=== PATIENT | female | born 1935 | race Two or more races ===

== ENCOUNTER 2022-04-07 11:19 | Inpatient (IN) | payer MEDICARE, BC ==
[2022-04-07] MEDS ORDERED: SODIUM CHLORIDE 0.9% 1,000 ML IV ONE (11:33)
[2022-04-07] MEDS ORDERED: MORPHINE SULFATE 4 MG/ML SYRINGE IV STA (11:33)
--- NOTE | 2022-04-07 11:38 | ED ---
Fall HPI - General Chief Complaint: Fall Stated Complaint: FALL Time Seen by Provider: 04/07/22 11:25 Source: patient, EMS Mode of arrival: EMS Limitations: physical limitation (Inability to ambulate) - History of Present Illness Initial Comments: 86-year-old cachectic female alert and oriented 4 presents to the emergency room with complaints of left hip pain and inability to ambulate. Patient states that she fell out of a chair onto her left side on Thursday last week and has been unable to bear weight. She has been scooting around on her butt and has 2 wounds that she just prior to arrival. Patient did not have any symptoms prior to the fall she believes she just tripped. She did not hit her head. 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 (6) Fall Witnessed: no Place Fall Occurred: home Loss of Consciousness: none Symptoms Prior to Fall: none Location: other (Left hip) Severity scale (1-10): 5 Quality: sharp Associated Symptoms: other (pressure ulcers bilateral buttocks) - Related Data Home Medications Medication Instructions Recorded Confirmed Aspirin EC [Ecotrin Low Dose] 81 mg PO DAILY 04/07/22 04/07/22 Calcium Citrate/Vitamin D3 2 tab PO BID 04/07/22 04/07/22 [Citracal + D Maximum Caplet] Magnesium 250 mg PO BID 04/07/22 04/07/22 Vit C/E/Zn/Coppr/Lutein/Zeaxan 1 cap PO BID 04/07/22 04/07/22 [Preservision Areds 2 Softgel] Vitamin B Complex 1 cap PO DAILY 04/07/22 04/07/22 Allergies Allergy/AdvReac Type Severity Reaction Status Date / Time No Known Allergies Allergy Verified 04/07/22 12:59 Review of Systems ROS Statement: Those systems with pertinent positive or pertinent negative responses have been documented in the HPI. ROS Other: All systems not noted in ROS Statement are negative. Past Medical History Past Medical History: Cancer Additional Past Medical History / Comment(s): skin cancer resolved History of Any Multi-Drug Resistant Organisms: None Reported Past Surgical History: No Surgical Hx Reported Past Psychological History: No Psychological Hx Reported Smoking Status: Never smoker Past Alcohol Use History: None Reported Past Drug Use History: None Reported General Exam Limitations: physical limitation General appearance: alert, in no apparent distress Head exam: Present: atraumatic Eye exam: Absent: scleral icterus, conjunctival injection, periorbital swelling Neck exam: Present: full ROM. Absent: tenderness, meningismus Respiratory exam: Absent: respiratory distress, accessory muscle use Cardiovascular Exam: Present: regular rate GI/Abdominal exam: Present: soft. Absent: distended, tenderness, guarding, r ebound, rigid Extremities exam: Present: normal capillary refill Left Hip exam: Present: tenderness, swelling (Anterior pelvis), ecchymosis Upper Leg exam: Present: tenderness, ecchymosis (Inner thigh) Knee exam: Absent: tenderness, swelling Lower Leg exam: Absent: tenderness, swelling Ankle exam: Absent: tenderness, swelling Foot/Toe exam: Absent: tenderness, swelling Neurovascular tendon exam: Present: no vascular compromise. Absent: abnormal cap refill, extremity cold to touch, pallor, foot drop Neurological exam: Present: alert, oriented X3 Psychiatric exam: Present: normal affect, normal mood Skin exam: Present: warm, dry, other (Stage II Pressure ulcers to bilateral buttocks). Absent: cyanosis, diaphoretic Course Vital Signs 04/07/22 04/07/22 04/07/22 11:23 12:59 14:12 Temperature 98.5 F Pulse Rate 98 87 85 Respiratory 18 18 18 Rate Blood Pressure 171/93 203/88 139/74 O2 Sat by Pulse 99 98 97 Oximetry Medical Decision Making - Medical Decision Making Patient fell out of a chair last week Thursday onto her left hip. States been having difficulty ambulating or bearing weight. Has been scooting around on her buttocks at home. She has sustained two friction versus pressure ulcers on her buttocks. Hemoglobin and hematocrit are stable. No evidence of leukocytosis. Elec trolytes show mild dehydration, patient was given IV fluids. X-ray shows a comminuted displaced intertrochanteric fracture left hip Patient will be admitted to orthopedics. Only daily meds are vitamins and a baby aspirin. No previous medical history. No previous fractures. Blood pressure is elevated was given hydralazine in the emergency room. Case discussed with Dr. Rosado - Lab Data Result diagrams: 04/07/22 11:49 04/07/22 11:49 Lab Results 04/07/22 04/07/22 04/07/22 Range/Units 11:49 11:49 11:49 WBC 7.1 (3.8-10.6) k/uL RBC 3.40 L (3.80-5.40) m/uL Hgb 11.6 (11.4-16.0) gm/dL Hct 33.6 L (34.0-46.0) % MCV 98.8 (80.0-100.0) fL MCH 34.1 (25.0-35.0) pg MCHC 34.5 (31.0-37.0) g/dL RDW 13.3 (11.5-15.5) % Plt Count 219 (150-450) k/uL MPV 9.0 Neutrophils % 79 % Lymphocytes % 12 % Monocytes % 7 % Eosinophils % 0 % Basophils % 0 % Neutrophils # 5.6 (1.3-7.7) k/uL Lymphocytes # 0.9 L (1.0-4.8) k/uL Monocytes # 0.5 (0-1.0) k/uL Eosinophils # 0.0 (0-0.7) k/uL Basophils # 0.0 (0-0.2) k/uL PT 10.0 (9.0-12.0) sec INR 0.9 (<1.2) APTT 22.5 (22.0-30.0) sec Sodium 143 (137-145) mmol/L Potassium 3.9 (3.5-5.1) mmol/L Chloride 104 (98-107) mmol/L Carbon Dioxide 31 H (22-30) mmol/L Anion Gap 8 mmol/L BUN 56 H (7-17) mg/dL Creatinine 0.79 (0.52-1.04) mg/dL Est GFR (CKD-EPI)AfAm 78 (>60 ml/min/1.73 sqM) Est GFR (CKD-EPI)NonAf 68 (>60 ml/min/1.73 sqM) Glucose 120 H (74-99) mg/dL Calcium 9.2 (8.4-10.2) mg/dL Disposition Clinical Impression: Fall, Fracture of left hip, Inability to ambulate due to left hip, Pressure ulcer of left buttock, stage 2 Disposition: ADMITTED IP TO THIS [facility] Decision Date: 04/07/22 Decision Time: 12:20
[2022-04-07 12:00] LABS: Basophils % (A) 0 %; Eosinophils % (A) 0 %; HCT 33.6 % (34.0-46.0); HGB 11.6 gm/dL (11.4-16.0); Lymphocytes # (A) 0.9 k/uL (1.0-4.8); Lymphocytes % (A) 12 %; MCH 34.1 pg (25.0-35.0); MCHC 34.5 g/dL (31.0-37.0); MCV 98.8 fL (80.0-100.0); Monocytes # (A) 0.5 k/uL (0-1.0); Monocytes % (A) 7 %; Neutrophils # (A) 5.6 k/uL (1.3-7.7); Neutrophils % (A) 79 %; Platelet Count 219 k/uL (150-450); RDW 13.3 % (11.5-15.5); WBC 7.1 k/uL (3.8-10.6)
--- NOTE | 2022-04-07 12:14 | XR ---
EXAMINATION TYPE: XR Hip LT and AP Pelvis DATE OF EXAM: 04/07/2022 COMPARISON: NONE HISTORY: Pain TECHNIQUE: A single AP view of the pelvis is obtained. Two views of the left hip are obtained. FINDINGS: There is comminuted intertrochanteric displaced fracture of the left femoral neck. Diffuse osteopenia. Arthropathy of the right hip. Degenerative changes lower lumbar spine. Remaining osseous structures intact. IMPRESSION: 1. Comminuted displaced intertrochanteric fracture left hip.
[2022-04-07 12:18] LABS: Calcium 9.2 mg/dL (8.4-10.2)
[2022-04-07 12:22] LABS: INR 0.9 (<1.2); Partial Thromboplastin Time 22.5 sec (22.0-30.0)
[2022-04-07 12:26] LABS: Potassium 3.9 mmol/L (3.5-5.1)
[2022-04-07] MEDS ORDERED: SODIUM CHLORIDE 0.9% 500 ML 500 ML IV ONE (12:31)
[2022-04-07] MEDS ORDERED: MORPHINE SULFATE 4 MG/ML SYRINGE IV PRN (12:37)
[2022-04-07] MEDS ORDERED: NALOXONE 0.4 MG/ML 1 ML VIAL IV PRN (12:37)
[2022-04-07] MEDS ORDERED: ACETAMINOPHEN TAB 325 MG TAB PO PRN (12:37)
[2022-04-07] MEDS ORDERED: hydrALAZINE HCL 20 MG/ML 1 ML VIAL IVP STA (13:03)
--- NOTE | 2022-04-07 13:31 | P.CONS ---
History of Present Illness - Reason for Consult Consult date: 04/07/22 left hip fracture - History of Present Illness Patient is a 86-year-old female with no significant past medical history presenting for fall and left hip fracture. Patient being admitted to orthopedics service. [facility] esthela has been consulted for medical management. She claims that she had a mechanical fall last week, and has been noticing significant left hip pain and difficulty ambulating. Lab work is insig nificant. Vital signs within normal limits. Left hip x-ray shows comminuted displaced intertrochanteric fracture of left hip. She denies any chest pain, shortness of breath, abdominal pain, nausea, vomiting, diarrhea, constipation, urinary complaints. Patient seen and examined at bedside. Pertinent positives and negatives as discussed in HPI, a complete review of systems was performed and all other systems are negative. Vital signs reviewed General: nontoxic, no distress, appears at stated age Derm: warm, dry Head: atraumatic, normocephalic, symmetric Eyes: EOMI, no lid lag, anicteric sclera, pupils equal round reactive to light ENT: Nose and ears atraumatic Neck: No thyromegaly Mouth: no lip lesion, mucus membranes moist Cardiovascular: S1S2 reg, no murmur, no edema Lungs: clear to auscultation bilateral, no rhonchi, no rales, no wheeze, no accessory muscle use Abdominal: soft, nontender to palpation, no guarding, no appreciable organomegaly, normal bowel sounds Ext: no gross muscle atrophy, muscle strength muscle strength 5 out of 5 in 3 extremities, left hip pain limiting left leg mobility Neuro: CN II-XII grossly intact Psych: Alert, oriented, appropriate affect Assessment/Plan: Left femoral intertrochanteric fracture -Management per Orthopedic surgery -DVT prophylaxis and pain control Perioperative evaluation -RCRI score of 0 points - 3.9% 30 day prescription , [place], or cardiac arrest -NPO at midnight -Medications reviewed and reconciled -Patient medically optimized for surgery tomorrow Thank you for allowing us to participate in the care of this pleasant patient. Do not hesitate to contact us with questions. Someone can be reached from the [facility] hospitalist group all hours of the day at [phone] or via [employer]. Past Medical History Past Medical History: Cancer Additional Past Medical History / Comment(s): skin cancer resolved History of Any Multi-Drug Resistant Organisms: None Reported Past Surgical History: No Surgical Hx Reported Past Psychological History: No Psychological Hx Reported Smoking Status: Never smoker Past Alcohol Use History: None Reported Past Drug Use History: None Reported Medications and Allergies Home Medications Medication Instructions Recorded Confirmed Type Aspirin EC [Ecotrin Low Dose] 81 mg PO DAILY 04/07/22 04/07/22 History Calcium Citrate/Vitamin D3 2 tab PO BID 04/07/22 04/07/22 History [Citracal + D Maximum Caplet] Magnesium 250 mg PO BID 04/07/22 04/07/22 History Vit C/E/Zn/Coppr/Lutein/Zeaxan 1 cap PO BID 04/07/22 04/07/22 History [Preservision Areds 2 Softgel] Vitamin B Complex 1 cap PO DAILY 04/07/22 04/07/22 History Allergies Allergy/AdvReac Type Severity Reaction Status Date / Time No Known Allergies Allergy Verified 04/07/22 12:59 Physical Exam Vitals: Vital Signs Temp Pulse Resp BP Pulse Ox 04/07/22 11:23 98.5 F 98 18 171/93 99 Intake and Output 04/06/22 04/07/22 04/07/22 22:59 06:59 14:59 Other: Weight 40.823 kg Results CBC & Chem 7: 04/07/22 11:49 04/07/22 11:49 Labs: Abnormal Lab Results - Last 24 Hours (Table) 04/07/22 04/07/22 Range/Units 11:49 11:49 RBC 3.40 L (3.80-5.40) m/uL Hct 33.6 L (34.0-46.0) % Lymphocytes # 0.9 L (1.0-4.8) k/uL Carbon Dioxide 31 H (22-30) mmol/L BUN 56 H (7-17) mg/dL Glucose 120 H (74-99) mg/dL
[2022-04-07] MEDS ORDERED: hydrALAZINE HCL 20 MG/ML 1 ML VIAL IVP PRN (13:32)
--- NOTE | 2022-04-07 17:02 | P.HPOR ---
History of Present Illness H&P Date: 04/07/22 Chief Complaint: Left intertrochanteric femur fracture Patient is an 78-year-old female who was brought to [facility] today for evaluation of left hip pain and difficulty with ambulation. Apparently the patient had a fall out of her chair at home last week. Since the injury, she's been unable to weight-bear on that extremity. She's been crawling around her home and managing her ADLs. Patient does live alone, she has a neighbor that checks on her quite often. Upon arrival to the hospital, imaging and lab tests were done. Images demonstrated a displaced left intertrochanteric femur fracture. Our orthopedic team was contacted with regards to the patient. Patient was evaluated today at bedside in the emergency room, she is resting comfortably. Patient does have a friend at bedside. She states most of the pain in the left lower extremity is with movement. She does have a few sores on her buttock region that have appeared over the last week or so. She denies any pain to the right lower extremity. She denies any pain of the bilateral upper extremity is. She denies any loss of bowel or bladder function. She denies any numbness or tingling to the bilateral upper or lower extremities. 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 History of Any Multi-Drug Resistant Organisms: None Reported Past Surgical History: No Surgical Hx Reported Additional Past Surgical History / Comment(s): R upper lip/nare surgery to remove skin cancer, bilateral cataract removals/lens implants. Past Anesthesia/Blood Transfusion Reactions: No Reported Reaction Smoking Status: Never smoker - Past Family History Father Additional Family Medical History / Comment(s): Heart problems. Mother Family Medical History: Dementia Medications and Allergies Home Medications Medication Instructions Recorded Confirmed Type Aspirin EC [Ecotrin Low Dose] 81 mg PO DAILY 04/07/22 04/07/22 History Calcium Citrate/Vitamin D3 2 tab PO BID 04/07/22 04/07/22 History [Citracal + D Maximum Caplet] Magnesium 250 mg PO BID 04/07/22 04/07/22 History Vit C/E/Zn/Coppr/Lutein/Zeaxan 1 cap PO BID 04/07/22 04/07/22 History [Preservision Areds 2 Softgel] Vitamin B Complex 1 cap PO DAILY 04/07/22 04/07/22 History Allergies Allergy/AdvReac Type Severity Reaction Status Date / Time No Known Allergies Allergy Verified 04/07/22 12:59 Physical Examination Left lower extremity: No open lesions or sores are visualized throughout the extremity. This extremity is shortened and externally rotated compared to the contralateral side Obvious tenderness with palpation of the proximal femur, she is nontender with palpation to the knee, lower leg, foot or ankle Logroll maneuver does reproduce discomfort in the extremity, extension and flexion are intact at the knee, plantarflexion, dorsiflexion, EHL, FHL are intact Compartments of the leg both anterior and posterior are soft and compressible, calf is soft, no tenderness with palpation Sensory exam to light touch is intact throughout the extremity Dorsalis pedis pulses 2+ Exam of the buttock region does show 2 separate pressure-type sores, small ulcerations are present, no drainage or fluctuance is appreciated. Mild eryt yael surrounds the borders Results - Labs Labs: Abnormal Lab Results - Last 24 Hours (Table) 04/07/22 04/07/22 Range/Units 11:49 11:49 RBC 3.40 L (3.80-5.40) m/uL Hct 33.6 L (34.0-46.0) % Lymphocytes # 0.9 L (1.0-4.8) k/uL Carbon Dioxide 31 H (22-30) mmol/L BUN 56 H (7-17) mg/dL Glucose 120 H (74-99) mg/dL H & H 04/07/22 Range/Units 11:49 Hgb 11.6 (11.4-16.0) gm/dL Hct 33.6 L (34.0-46.0) % Coagulation 04/07/22 Range/Units 11:49 INR 0.9 (<1.2) Result Diagrams: 04/07/22 11:49 04/07/22 11:49 - Diagnostic results Hip x-ray: report reviewed, image reviewed (Images of the left hip and pelvis were obtained today in hospital. Images demonstrated the obvious displaced left intertrochanteric femur fracture. No other acute osseous abnormalities are appreciated) Assessment and Plan Assessment: Displaced left intertrochanteric femur fracture Status post fall from standing Pressure sores, buttock region Other medical comorbidities Plan: I was able to discuss the case, this including both physical exam findings and imaging studies my attending Dr. Garber. Patient will be admitted under orthopedic care, terminal medicine has been consulted for management. I did discuss treatment options with the patient today, this including surgical intervention. We would like to proceed with surgery, intramedullary nail of the left femur on 04/08/2022 or 04/09/2022. Risk and benefits the procedure were discussed the patient today, she is in good understanding and would like to proceed. Regular diet at this time, nothing by mouth after midnight prior to surgery Nonweightbearing left lower extremity Pressure sore dressings discussed with the ER staff, this to include silver opted home GI and DVT prophylaxis, subcu medication will be started after surgery Medical management Pain control, oral and IV medicine as needed PT/OT evaluation after surgery Further recommendations to follow Time with Patient: Less than 30
[2022-04-08] MEDS ORDERED: LIDOCAINE 1% (10MG/ML) FOR IV START INTRADERMA PRN (07:08)
[2022-04-08] MEDS ORDERED: ONDANSETRON 4 MG/2 ML VIAL IVP ONE (07:08)
[2022-04-08] MEDS: LACTATED RINGERS 1,000 ML IV SCH (10:39)
--- NOTE | 2022-04-08 11:37 | P.PN ---
Subjective Progress Note Date: 04/08/22 Principal diagnosis: Left hip fracture Hospital Course: Patient is a 86-year-old female with no significant past medical history presenting for mechanical fall and left hip fracture. Patient being admitted to orthopedics service. [facility] physicians has been consulted for medical management. Subjective: Patient seen and examined at bedside. No acute events overnight. She continues to have significant left hip pain limiting her mobility. She is also complaining of sores on her buttocks from her scooting on the floor at home. Pertinent positives and negatives as discussed above, a complete review of systems was performed and all other systems are negative. Vitals Signs Reviewed. General: nontoxic, no distress, appears at stated age Derm: warm, dry, erythematous patches on bilateral buttocks Head: atraumatic, normocephalic, symmetric Eyes: EOMI, no lid lag, anicteric sclera, pupils equal round reactive to light ENT: Nose and ears atraumatic Neck: No thyromegaly Mouth: no lip lesion, mucus membranes moist Cardiovascular: S1S2 reg, no murmur, no edema Lungs: clear to auscultation bilateral, no rhonchi, no rales, no wheeze, no accessory muscle use Abdominal: soft, nontender to palpation, no guarding, no appreciable organomegaly, normal bowel sounds Ext: no gross muscle atrophy, muscle strength muscle strength 5 out of 5 in 3 extremities, left hip pain limiting left leg mobility Neuro: CN II-XII grossly intact Psych: Alert, oriented, appropriate affect Assessment and Plan: Left femoral intertrochanteric fracture -Management per Orthopedic surgery -DVT prophylaxis and pain control -Surgery pending either today or tomorrow. Hypertension -Not on any chronic home medications -Likely in the setting of pain -Hydralazine as needed Patient is medically optimized for surgery Thank you for allowing us to participate in the care of this pleasant patient. Do not hesitate to contact us with questions. Someone can be reached from the [facility] hospitalist group all hours of the day at [phone] or via [employer]. Objective - Vital Signs Vital signs: Vital Signs Temp 97.6 F 04/08/22 05:00 Pulse 74 04/08/22 05:00 Resp 16 04/08/22 05:00 BP 144/76 04/08/22 05:00 Pulse Ox 97 04/08/22 05:00 FiO2 Intake & Output 04/07/22 04/08/22 04/08/22 18:59 06:59 18:59 Output Total 700 225 Balance -700 -225 Weight 40.823 kg Output: Urine 700 225 Other: Voiding Method Indwelling Catheter Indwelling Catheter - Labs CBC & Chem 7: 04/07/22 11:49 04/07/22 11:49 Labs: Abnormal Lab Results - Last 24 Hours (Table) 04/07/22 04/07/22 Range/Units 11:49 11:49 RBC 3.40 L (3.80-5.40) m/uL Hct 33.6 L (34.0-46.0) % Lymphocytes # 0.9 L (1.0-4.8) k/uL Carbon Dioxide 31 H (22-30) mmol/L BUN 56 H (7-17) mg/dL Glucose 120 H (74-99) mg/dL
[2022-04-08 14:17] VITALS: BMI 16.9
[2022-04-09] MEDS: LACTATED RINGERS 1,000 ML IV SCH ×2 (06:50→07:28)
[2022-04-09] MEDS ORDERED: ONDANSETRON 4 MG/2 ML VIAL ONE (07:09)
[2022-04-09] MEDS ORDERED: DEXAMETHASONE SOD PHOSPHATE 4 MG/ML 1 ML VIAL IVP ONE (07:10)
[2022-04-09] MEDS ORDERED: ONDANSETRON 4 MG/2 ML VIAL IVP ONE (07:10)
[2022-04-09] MEDS ORDERED: fentaNYL (PF) 50 MCG/ML 2 ML AMP ONE (07:20)
[2022-04-09] MEDS ORDERED: PROPOFOL 10 MG/ML 20 ML VIAL IV ONE (07:20)
[2022-04-09] MEDS ORDERED: MIDAZOLAM 2 MG/2 ML VIAL ONE (07:20)
[2022-04-09] MEDS ORDERED: KETAMINE 10 MG/ML 20 ML VIAL ONE (07:20)
[2022-04-09] MEDS ORDERED: PHENYLEPHRINE-0.9% NACL SYG 1,000 MCG/10 ML SYRINGE ONE (07:20)
[2022-04-09] MEDS ORDERED: SODIUM CHLORIDE 0.9% 50 ML with ceFAZolin 1 GM IV ONE ×2 (07:45)
[2022-04-09] MEDS ORDERED: NALOXONE 0.4 MG/ML 1 ML VIAL IV PRN (08:50)
[2022-04-09] MEDS ORDERED: HYDROcodone/APAP 5-325MG 1 EACH TAB PO PRN (08:50)
[2022-04-09] MEDS ORDERED: HYDROmorphone 0.5 MG/0.5 ML SYRINGE IVP PRN ×2 (08:50)
[2022-04-09] MEDS ORDERED: ONDANSETRON 4 MG/2 ML VIAL IVP PRN (08:50)
--- NOTE | 2022-04-09 08:50 | P.OP ---
Date of Procedure: 04/09/22 Preoperative Diagnosis: Displaced left hip intertrochanteric fracture Postoperative Diagnosis: Displaced left hip intertrochanteric fracture Procedure(s) Performed: Trochanteric nailing left hip fracture Implants: Arthrex 9 x 20 130 degree trochanteric nail with a 10.5 x 95 lag screw and a 5/32 mm distal locking screw Anesthesia: spinal Surgeon: Freeman Garber Latin Dance Instructor #1: Adam Vital Estimated Blood Loss (ml): 20 Pathology: none sent Condition: stable Disposition: PACU Indications for Procedure: 86-year-old patient seen with a displaced left hip intertrochanteric fracture. I recommended trochanteric nailing. Patient was agreeable and consent was obtained. Operative Findings: See description of procedure Description of Procedure: Patient was taken to the operative suite. She received preoperative IV antibiotics. She underwent a spinal by the department of anesthesia. She was then transferred to the fracture table. The left lower extremity was placed in standard longitudinal traction with slight internal rotation and adduction. The right lower was placed in a well-padded well-leg mitchell. The C-arm was brought in confirming adequate alignment of this displaced fracture. The C-arm was pulled back. The left hip was prepped and draped in the normal sterile fashion. C-arm was brought back into the operative field. I made an incision measuring approximately 3 cm just proximal to the greater trochanter sharply through skin. I dissected down to the IT band may wash incision through the IT band. I now bluntly dissected to the tip of the trochanter. I introduced a guidewire into the intramedullary canal beginning at the tip of the trochanter. This was confirmed under intraoperative fluoroscopic imaging. We now introduced our opening reamer. We now chose a 1:30 degree Arthrex 9 mm trochanteric nail. That nail was now slid over the guidewire into the intramedullary canal. I tapped that down until was sufficiently placed. We now made an incision along the proximal lateral aspect of the femur for lag screw. We then placed a guidewire into the head neck complex and confirmed adequate positioning under AP and lateral intraoperative fluoroscopic imaging. We then appropriately reamed over the guidewire. I now placed my 95 mm lag screw with good fixation of the femoral head noted. I now locking lag screw in position. The guidewire was removed and we confirmed adequate positioning under fluoroscopic imaging. We now made a small incision distally for distal locking screw. We drilled through the distal locking hole and introduced our appropriate size distal locking screw good fixation noted. The our was removed. The entire construct was reviewed under AP and lateral intraoperative imaging and noted adequate alignment of the fracture and the implants. The C-arm was pulled back. The wound was irrigated with antibiotic irrigant. The proximal incision IT band was repaired with #1 Vicryl. The subcutaneous soft tissues were repaired with 2-0 Vicryl. All the skin incisions were repaired with skin zainab. I applied sterile dressings. The patient was then transferred to a bed and recovery stable condition. Jm BARNES assisted with all aspects of the procedure.
--- NOTE | 2022-04-09 08:55 | XR ---
EXAMINATION TYPE: XR Hip Complete LT DATE OF EXAM: 04/09/2022 COMPARISON: NONE HISTORY: Postop TECHNIQUE: One view submitted. FINDINGS: There is postsurgical change in near anatomic alignment. There is soft tissue edema and emphysema. IMPRESSION: 1. Postoperative change. Appears in near-anatomic alignment.
--- NOTE | 2022-04-09 09:02 | FL ---
EXAMINATION TYPE: FL guidance operating room DATE OF EXAM: 04/09/2022 HISTORY: Fluoroscopy time 1 minute and 22 seconds of fluoroscopy provided. IMPRESSION: 1. Fluoroscopy time.
[2022-04-09] MEDS: ENOXAPARIN 30 MG/0.3 ML SYRINGE SQ SCH (10:43)
[2022-04-09] MEDS: SODIUM CHLORIDE 0.9% 1,000 ML IV SCH (10:44)
--- NOTE | 2022-04-09 12:19 | CDI ---
Documentation Clarification Form Date: 04/09/2022 12:06:20 PM From: Octavia WayneBuckCHELE hicks, CCDS Admit Date: 04/07/2022 12:23:00 PM Patient Name: Zuleyma Alba Visit Number: [id number] Discharge Date: ATTENTION: The Clinical Documentation Specialists (CDI) and [facility] Coding Staff appreciate your assistance in clarifying documentation. Please respond to the clarification below the line at the bottom and electronically sign. The CDI & [facility] Coding staff will review the response and follow-up if needed. Please note: Queries are made part of the Legal Health Record. If you have any questions, please contact the author of this message via ITS. Dr. Mayo Núñez: Per the ED Note on 04/07, this is an 86 yo cachectic female who lives alone and presented to the ED after a fall a week ago and has been crawling around her house to get around. Per the bedscale weight, the patient's BMI is 17.0. Based on this information and the findings below, is there an additional diagnosis that is clinically appropriate for this patient? History/Risk Factors per the 04/07 Medical Management Consult: Skin Cancer. Clinical Indicators: Presented to the ED on 04/07 via EMS with inability to ambulate due to pain in the left hip after a fall from a chair over a week ago. Admit with Fall, Fracture of the Left Hip, Inability to Ambulate due to Left Hip, Pressure Ulcer on Left Buttock stage 2. Current BMI: per the bedscale: 17.0. Per the Nursing Nutritional Assessment: Underweight. Nutrition Intake: Fair, consuming 100% of meals. Appearance: Emaciated, Underweight, Wounds on buttocks. Height: 5 ft 1 in. 86% of Calculated IBW. Supplements: Ensure Enlive, regular diet. Treatment 04/07: Canela catheter placement, Opticell Gel fiber, Optifoam Gentle Liquid Bandage, Oral Supplement, IV Morphine 4 mg x1, IV Na Chl 1,000 mls @ 50 mls/hr q20H, IV Na Chl 500 mls @ 999 mls/hr q31M, IV Morphine 4 mg q4H/prn, IV Apresoline 10 mg x1 then q6H/prn. To OR 04/09: Nailing of Left Hip Fracture Is there an additional diagnosis that is clinically appropriate for this patient? [ x ] Mild Protein-Calorie Malnutrition [ ] Moderate Protein-Calorie Malnutrition [ ] Severe Protein-Calorie Malnutrition [ ] Other condition, please specify [ ] Unable to Determine (Template Last Revised: July 2020) MTDD
--- NOTE | 2022-04-09 13:52 | P.PN ---
Subjective Progress Note Date: 04/09/22 Principal diagnosis: Left hip fracture Hospital Course: Patient is a 86-year-old female with no significant past medical history presenting for mechanical fall and left hip fracture. Patient being admitted to orthopedics service. S/p tronchanteric nailing. [facility] physicians has been consulted for medical management. Subjective: Patient seen and examined at bedside. No acute events overnight. She continues to have significant left hip pain limiting her mobility. She is also complaining of sores on her buttocks from her scooting on the floor at home. Pertinent positives and negatives as discussed above, a complete review of systems was performed and all other systems are negative. Vitals Signs Reviewed. General: nontoxic, no distress, appears at stated age Derm: warm, dry, erythematous patches on bilateral buttocks, left thigh dressing clean and dry Head: atraumatic, normocephalic, symmetric Eyes: EOMI, no lid lag, anicteric sclera, pupils equal round reactive to light ENT: Nose and ears atraumatic Neck: No thyromegaly Mouth: no lip lesion, mucus membranes moist Cardiovascular: S1S2 reg, no murmur, no edema Lungs: clear to auscultation bilateral, no rhonchi, no rales, no wheeze, no accessory muscle use Abdominal: soft, nontender to palpation, no guarding, no appreciable organomegaly, normal bowel sounds Ext: no gross muscle atrophy, muscle strength muscle strength 5 out of 5 in 3 extremities, left hip pain limiting left leg mobility Neuro: CN II-XII grossly intact Psych: Alert, oriented, appropriate affect Assessment and Plan: Left femoral intertrochanteric fracture -now s/p surgery -Management per Orthopedic surgery -DVT prophylaxis and pain control Hypertension -Not on any chronic home medications -Likely in the setting of pain -Hydralazine as needed Thank you for allowing us to participate in the care of this pleasant patient. Do not hesitate to contact us with questions. Someone can be reached from the [facility] hospitalist group all hours of the day at [phone] or via perfect serve. Objective - Vital Signs Vital signs: Vital Signs Temp 97.7 F 04/09/22 10:52 Pulse 76 04/09/22 11:50 Resp 16 04/09/22 10:52 BP 143/61 04/09/22 11:50 Pulse Ox 92 L 04/09/22 11:50 FiO2 Intake & Output 04/08/22 04/09/22 04/09/22 18:59 06:59 18:59 Intake Total 160 450 Output Total 400 325 270 Balance -240 -325 180 Weight 40.823 kg 40.823 kg Intake: IV 450 Intake, IV Titration 160 Amount Lactated Ringers 1,000 ml 160 @ 20 mls/hr IV .Q24H [facility] Rx#:[id number] Output: Urine 400 325 250 Estimated Blood Loss 20 Other: Voiding Method Indwelling Catheter Indwelling Catheter Indwelling Catheter # Bowel Movements 1 - Labs CBC & Chem 7: 04/07/22 11:49 04/07/22 11:49
[2022-04-09] MEDS: HYDROcodone/APAP 5-325MG 1 EACH TAB PO PRN (14:57)
[2022-04-09] MEDS: HYDROmorphone 0.5 MG/0.5 ML SYRINGE IVP PRN ×2 (16:23→20:26)
[2022-04-09 18:14] LABS: Basophils # (A) 0.01 X 10*3/uL (0.00-0.10); Basophils % (A) 0.1 %; Eosinophils # (A) 0.01 X 10*3/uL (0.04-0.35); Eosinophils % (A) 0.1 %; HCT 33.7 % (37.2-46.3); HGB 10.7 g/dL (12.0-15.0); Immature Grans, Automated 0.9 %; Lymphocytes # (A) 0.58 X 10*3/uL (0.90-5.00); Lymphocytes % (A) 6.5 %; MCH 32.4 pg (27.0-32.0); MCHC 31.8 g/dL (32.0-37.0); MCV 102.1 fL (80.0-97.0); Mean Platelet Volume 10.7 fL (9.5-12.2); Monocytes # (A) 0.28 X 10*3/uL (0.20-1.00); Monocytes % (A) 3.2 %; NRBC Per 100 WBC 0 /100 WBCS (0.0-0.0); Neutrophils # (A) 7.92 X 10*3/uL (1.80-7.70); Neutrophils % (A) 89.2 %; Platelet Count 267 X 10*3/uL (140-440); RDW 13.7 % (11.5-14.5); WBC 8.88 X 10*3/uL (4.50-10.00)
[2022-04-09] MEDS: SENNOSIDES-DOCUSATE SODIUM 1 EACH TAB PO SCH (20:07)
[2022-04-10] MEDS: HYDROcodone/APAP 5-325MG 1 EACH TAB PO PRN (04:45)
[2022-04-10] MEDS: SODIUM CHLORIDE 0.9% 1,000 ML IV SCH (06:32)
[2022-04-10] MEDS: LACTATED RINGERS 1,000 ML IV SCH (08:28)
[2022-04-10] MEDS: ENOXAPARIN 30 MG/0.3 ML SYRINGE SQ SCH (10:26)
--- NOTE | 2022-04-10 13:03 | P.PN ---
Subjective Progress Note Date: 04/10/22 Principal diagnosis: Left hip fracture Hospital Course: Patient is a 86-year-old female with no significant past medical history presenting for mechanical fall and left hip fracture. Patient being admitted to orthopedics service. S/p tronchanteric nailing. [facility] physicians has been consulted for medical management. Subjective: Patient seen and examined at bedside. No acute events overnight. She continues to have some pain in the left hip. She denies any chest pain, shortness of breath, abdominal pain, urinary or bowel complaints. Pertinent positives and negatives as discussed above, a complete review of systems was performed and all other systems are negative. Vitals Signs Reviewed. General: nontoxic, no distress, appears at stated age Derm: warm, dry, erythematous patches on bilateral buttocks, left thigh dressing clean and dry Head: atraumatic, normocephalic, symmetric Eyes: EOMI, no lid lag, anicteric sclera, pupils equal round reactive to light ENT: Nose and ears atraumatic Neck: No thyromegaly Mouth: no lip lesion, mucus membranes moist Cardiovascular: S1S2 reg, no murmur, no edema Lungs: clear to auscultation bilateral, no rhonchi, no rales, no wheeze, no accessory muscle use Abdominal: soft, nontender to palpation, no guarding, no appreciable organomegaly Ext: no gross muscle atrophy Neuro: CN II-XII grossly intact Psych: Alert, oriented, appropriate affect Assessment and Plan: Left femoral intertrochanteric fracture -now s/p surgery -Management per Orthopedic surgery -DVT prophylaxis and pain control Hypertension -Not on any chronic home medications -Likely in the setting of pain -Hydralazine as needed Thank you for allowing us to participate in the care of this pleasant patient. Do not hesitate to contact us with questions. Someone can be reached from the [facility] hospitalist group all hours of the day at [phone] or via perfect serve. Objective - Vital Signs Vital signs: Vital Signs Temp 97.5 F L 04/10/22 12:04 Pulse 92 04/10/22 12:04 Resp 16 04/10/22 12:04 BP 138/67 04/10/22 12:04 Pulse Ox 93 L 04/10/22 12:04 FiO2 Intake & Output 04/09/22 04/10/22 04/10/22 18:59 06:59 18:59 Intake Total 1100 590 Output Total 770 400 Balance 330 190 Weight 40.823 kg Intake: IV 450 Intake, IV Titration 650 Amount Sodium Chloride 0.9% 1, 600 000 ml @ 50 mls/hr IV . Q20H [facility] Rx#:[id number] ceFAZolin 1,000 mg In 50 Sodium Chloride 0.9% 50 ml @ 100 mls/hr IVPB Q8HR [facility] Rx#:[id number] Oral 590 Output: Urine 750 400 Estimated Blood Loss 20 Other: Voiding Method Indwelling Catheter Indwelling Catheter Indwelling Catheter - Labs CBC & Chem 7: 04/09/22 11:39 04/07/22 11:49 Labs: Abnormal Lab Results - Last 24 Hours (Table) 04/09/22 Range/Units 11:39 RBC 3.30 L (4.10-5.20) X 10*6/uL Hgb 10.7 L (12.0-15.0) g/dL Hct 33.7 L (37.2-46.3) % MCV 102.1 H (80.0-97.0) fL MCH 32.4 H (27.0-32.0) pg MCHC 31.8 L (32.0-37.0) g/dL Immature Gran # 0.08 H (0.00-0.04) X 10*3/uL Neutrophils # 7.92 H (1.80-7.70) X 10*3/uL Lymphocytes # 0.58 L (0.90-5.00) X 10*3/uL Eosinophils # 0.01 L (0.04-0.35) X 10*3/uL
--- NOTE | 2022-04-10 13:06 | P.PN ---
Subjective Progress Note Date: 04/10/22 Principal diagnosis: Status post IM nail left intertrochanteric femur fracture Patient evaluated at bedside, she is resting comfortably in bed. She was actually up sitting in her chair earlier today. She did okay with physical therapy. She notes generalized discomfort in the left lower extremity. She denies any headaches, lightheadedness, chest pain or shortness of breath. Urinary catheter remains in place. Objective - Vital Signs Vital signs: Vital Signs Temp 97.5 F L 04/10/22 12:04 Pulse 92 04/10/22 12:04 Resp 16 04/10/22 12:04 BP 138/67 04/10/22 12:04 Pulse Ox 93 L 04/10/22 12:04 FiO2 Intake & Output 04/09/22 04/10/22 04/10/22 18:59 06:59 18:59 Intake Total 1100 590 Output Total 770 400 Balance 330 190 Weight 40.823 kg Intake: IV 450 Intake, IV Titration 650 Amount Sodium Chloride 0.9% 1, 600 000 ml @ 50 mls/hr IV . Q20H [facility] Rx#:[id number] ceFAZolin 1,000 mg In 50 Sodium Chloride 0.9% 50 ml @ 100 mls/hr IVPB Q8HR [facility] Rx#:[id number] Oral 590 Output: Urine 750 400 Estimated Blood Loss 20 Other: Voiding Method Indwelling Catheter Indwelling Catheter Indwelling Catheter - Exam Left lower extremity: Incision is clean, dry, and intact. The foam dressing are in good condition. There is minimal soft tissue swelling and ecchymosis surrounding the medial and lateral aspects of the incision. Calf is soft, no tenderness with palpation. Plantar flexion, dorsiflexion, EHL, FHL are intact. Sensory exam to light touch throughout the extremity is intact, dorsal pedis pulses 2+. - Labs CBC & Chem 7: 04/09/22 11:39 04/07/22 11:49 Labs: Abnormal Lab Results - Last 24 Hours (Table) 04/09/22 Range/Units 11:39 RBC 3.30 L (4.10-5.20) X 10*6/uL Hgb 10.7 L (12.0-15.0) g/dL Hct 33.7 L (37.2-46.3) % MCV 102.1 H (80.0-97.0) fL MCH 32.4 H (27.0-32.0) pg MCHC 31.8 L (32.0-37.0) g/dL Immature Gran # 0.08 H (0.00-0.04) X 10*3/uL Neutrophils # 7.92 H (1.80-7.70) X 10*3/uL Lymphocytes # 0.58 L (0.90-5.00) X 10*3/uL Eosinophils # 0.01 L (0.04-0.35) X 10*3/uL Assessment and Plan Assessment: Postoperative day #1 status post IM nail left intertrochanteric femur fracture Acute blood loss anemia, expected surgical outcome Pressure sores, buttock region Other medical comorbidities Plan: Pain control, continue use of oral and IV medicine as needed Partial weightbearing left lower extremity. Walker at all times DVT prophylaxis, continue subcu Lovenox during inpatient stay Ferrous sulfate 325 mg twice a day for anemia PT/OT GI and DVT prophylaxis Medical management Discharge planning: Patient will require subacute rehab, we'll continue to follow and discharge was stable Time with Patient: Less than 30
[2022-04-10] MEDS: FERROUS SULFATE 325 MG TAB PO SCH (18:31)
[2022-04-10] MEDS: SENNOSIDES-DOCUSATE SODIUM 1 EACH TAB PO SCH (21:31)
[2022-04-11] MEDS: SODIUM CHLORIDE 0.9% 1,000 ML IV SCH (02:38)
[2022-04-11] MEDS: HYDROcodone/APAP 5-325MG 1 EACH TAB PO PRN ×2 (02:41→08:33)
[2022-04-11 05:09] VITALS: PULSE 76
[2022-04-11 07:58] VITALS: BP 135/66; RESP 15; TEMP 98.7
[2022-04-11] MEDS: FERROUS SULFATE 325 MG TAB PO SCH (08:02)
[2022-04-11] MEDS: ENOXAPARIN 30 MG/0.3 ML SYRINGE SQ SCH (08:02)
[2022-04-11] MEDS: LACTATED RINGERS 1,000 ML IV SCH (08:30)
[2022-04-11 10:47] LABS: Basophils # (A) 0.03 X 10*3/uL (0.00-0.10); Basophils % (A) 0.4 %; Eosinophils # (A) 0.11 X 10*3/uL (0.04-0.35); Eosinophils % (A) 1.4 %; HCT 27.3 % (37.2-46.3); HGB 8.9 g/dL (12.0-15.0); Immature Grans, Automated 0.9 %; Lymphocytes # (A) 1.23 X 10*3/uL (0.90-5.00); Lymphocytes % (A) 15.1 %; MCH 33.5 pg (27.0-32.0); MCHC 32.6 g/dL (32.0-37.0); MCV 102.6 fL (80.0-97.0); Mean Platelet Volume 10.5 fL (9.5-12.2); Monocytes # (A) 0.92 X 10*3/uL (0.20-1.00); Monocytes % (A) 11.3 %; NRBC Per 100 WBC 0 /100 WBCS (0.0-0.0); Neutrophils # (A) 5.77 X 10*3/uL (1.80-7.70); Neutrophils % (A) 70.9 %; Platelet Count 249 X 10*3/uL (140-440); RBC 2.66 X 10*6/uL (4.10-5.20); RDW 14.1 % (11.5-14.5); WBC 8.13 X 10*3/uL (4.50-10.00)
--- NOTE | 2022-04-11 10:54 | P.PN ---
Subjective Progress Note Date: 04/11/22 Principal diagnosis: Status post IM nail left intertrochanteric femur fracture Patient evaluated at bedside, she is resting comfortably in her hospital chair. Patient is progressing well at this time, her pain is controlled. Urinary catheter still remains in place. She denies any headaches, lightheadedness, chest pain or shortness of breath. Urinary catheter remains in place. Objective - Vital Signs Vital signs: Vital Signs Temp 98.7 F 04/11/22 07:56 Pulse 76 04/11/22 07:56 Resp 15 04/11/22 07:56 BP 135/66 04/11/22 07:56 Pulse Ox 97 04/11/22 07:56 FiO2 Intake & Output 04/10/22 04/11/22 04/11/22 18:59 06:59 18:59 Intake Total 620 Output Total 700 300 Balance 620 -700 -300 Weight 40.823 kg Intake: Oral 620 Output: Urine 700 300 Other: Voiding Method Indwelling Catheter Indwelling Catheter - Exam Left lower extremity: Incision is clean, dry, and intact. The foam dressing are in good condition. There is minimal soft tissue swelling and ecchymosis surrounding the medial and lateral aspects of the incision. Calf is soft, no tenderness with palpation. Plantar flexion, dorsiflexion, EHL, FHL are intact. Sensory exam to light touch throughout the extremity is intact, dorsal pedis pulses 2+. - Labs CBC & Chem 7: 04/11/22 06:30 04/07/22 11:49 Labs: Abnormal Lab Results - Last 24 Hours (Table) 04/11/22 Range/Units 06:30 RBC 2.66 L (4.10-5.20) X 10*6/uL Hgb 8.9 L (12.0-15.0) g/dL Hct 27.3 L (37.2-46.3) % MCV 102.6 H (80.0-97.0) fL MCH 33.5 H (27.0-32.0) pg Immature Gran # 0.07 H (0.00-0.04) X 10*3/uL Assessment and Plan Assessment: Postoperative day #2 status post IM nail left intertrochanteric femur fracture Acute blood loss anemia, expected surgical outcome Pressure sores, buttock region Other medical comorbidities Plan: Pain control, plan for discharge on [employer] 5mg/325mg Partial weightbearing left lower extremity. Walker at all times DVT prophylaxis, aspirin 81mg bid at discharge Ferrous sulfate 325 mg twice a day for anemia PT/OT GI and DVT prophylaxis Medical management Discharge planning: Pending patient is able to after removal of catheter, planning discharge today Time with Patient: Less than 30
--- NOTE | 2022-04-11 11:00 | P.DS ---
Providers Date of admission: 04/07/22 12:23 Expected date of discharge: 04/11/22 Attending physician: Freeman Garber Consults: 04/07/22 12:37 Consult Physician Routine Consulting Provider: Mayo Núñez Consult Reason/Comments: Medical management, left hip fracture Do you want consulting provider notified?: Yes, Notify in am Primary care physician: Stated None Hospital Course: Date of admission: 04/07/2022 Date of discharge: 04/11/2022 Admission diagnosis: Displaced left intertrochanteric femur fracture Discharge diagnosis: Status post IM nail left intertrochanteric femur fracture Attending physician: Dr. Garber Surgical procedures: Intramedullary nail left intertrochanteric femur fracture Brief history: Patient is a 86-year-old female who presented to [facility] on 04/07/2022 after falling and injuring her left hip. Was determined patient had a left hip fracture, she was admitted under our orthopedic care with plan for surgical intervention. Internal medicine was consulted for medical management. Hospital course: Details of patient's surgery can be found in operative report. Patient tolerated the procedure well and was subsequently transported to orthopedic floor. Patient's orthopeidc and medical care was provided daily. Patient had daily laboratory tests performed for evaluation of overall blood counts. Patient had daily physical therapy to include strengthening range of motion as well as education with walker ambulation. Patient was treated with Lovenox for their postoperative DVT prophylaxis during their inpatient stay. Patient was noted to have a relatively uneventful postoperative course. Patient reported satisfactory pain control with oral pain medications by postoperative day 0. Patient showed satisfactory progress with physical therapy. Patient moved steadily through the program and had no difficulty meeting the goals by postoperative day 2. Given patient's otherwise satisfactory course and having met physical therapy goals, plan is to discharge patient rehab on postoperative day 2. Discharge condition/disposition: Patient will be discharged rehab in stable condition. Discharge medications: Instructions are given on resumption of patient's normal daily medications per primary care recommendation, in addition patient will be prescribed [place] 5 mg/325 mg, aspirin 81 mg, senna, MiraLAX, ferrous sulfate. Discharge instructions: 1. Wound care and infection precautions, keep incision dry and covered while showering, no lotions, creams, moisturizers. No soaking, tubs, pools, hottubs. Do not scrub over the incision. 2. 25% weightbearing left lower extremity with walker / cane until follow-up. 3. Ice and elevate when necessary. Do not exceed 20 minutes per hour with ice pack. 4. Utilize compression sleeve until seen at first follow up appointment. 5. Visiting nursing care. 6. Home physical therapy 7. Pain meds and anticoagulants per prescription. 8. Pain medication has potential to cause constipation. Increase oral fluid and fiber intake. Contact primary care provider if you have not had a bowel movement within 48 hours after discharge 9. No anti-inflammatory medication until discussed at first post operative visit, this including Motrin, Aleve, Mobic, Diclofenac 10. Follow up in office at 2 weeks postop with Jm Vital PA-C/Marcelo Ray 11. Follow up with your primary care doctor 7-10 days after discharge. 12. Contact [facility] with any questions, . Procedures: Intramedullary nail left intertrochanteric femur fracture Patient Condition at Discharge: Good Plan - Discharge Summary Discharge Rx Participant: No New Discharge Prescriptions: New HYDROcodone/APAP 5-325MG [[place] 5-325] 1 tab PO Q4HR PRN #42 tab PRN Reason: Pain Sennosides/Docusate Sodium [Senna-S 8.6-50 mg Tablet] 1 each PO DAILY PRN #30 tablet PRN Reason: Constipation Aspirin [Adult Low Dose Aspirin EC] 81 mg PO BID #60 tab Ferrous Sulfate [Iron (65 MG Elemental)] 325 mg PO BID #60 tab polyethylene glycoL 3350 [Miralax] 17 gm PO DAILY PRN #21 packet PRN Reason: Constipation No Action Vitamin B Complex 1 cap PO DAILY Calcium Citrate/Vitamin D3 [Citracal + D Maximum Caplet] 2 tab PO BID Aspirin EC [Ecotrin Low Dose] 81 mg PO DAILY Magnesium 250 mg PO BID Vit C/E/Zn/Coppr/Lutein/Zeaxan [Preservision Areds 2 Softgel] 1 cap PO BID Discharge Medication List Aspirin EC [Ecotrin Low Dose] 81 mg PO DAILY 04/07/22 [History] Calcium Citrate/Vitamin D3 [Citracal + D Maximum Caplet] 2 tab PO BID 04/07/22 [History] Magnesium 250 mg PO BID 04/07/22 [History] Vit C/E/Zn/Coppr/Lutein/Zeaxan [Preservision Areds 2 Softgel] 1 cap PO BID 04/07/22 [History] Vitamin B Complex 1 cap PO DAILY 04/07/22 [History] Aspirin [Adult Low Dose Aspirin EC] 81 mg PO BID #60 tab 04/11/22 [Rx] Ferrous Sulfate [Iron (65 MG Elemental)] 325 mg PO BID #60 tab 04/11/22 [Rx] HYDROcodone/APAP 5-325MG [[place] 5-325] 1 tab PO Q4HR PRN #42 tab 04/11/22 [Rx] Sennosides/Docusate Sodium [Senna-S 8.6-50 mg Tablet] 1 each PO DAILY PRN #30 tablet 04/11/22 [Rx] polyethylene glycoL 3350 [Miralax] 17 gm PO DAILY PRN #21 packet 04/11/22 [Rx] Follow up Appointment(s)/Referral(s): Adam Vital, PAC [[employer]] - 2 Weeks None,Stated [Primary Care Provider] - 1-2 days Activity/Diet/Wound Care/Special Instructions: Orthopedic discharge instructions: 1. Pain medication as needed 2. Utilize stool softeners daily 3. Ferrous sulfate 325 mg twice a day for anemia 4. Aspirin 81 mg twice a day for DVT prophylaxis, utilize for 30 days 5. Okay to remove the surgical dressings on 04/14/2022. Utilize bandages, okay to remove zainab as of 04/23/2022. Assess and change dressings every 2-3 days on the buttock pressure sores 6. Partial weightbearing on the left lower extremity, utilize walker at all times 6. Plan for [facility]up at [facility] 2 weeks Discharge Disposition: TRANSFER TO SNF/ECF
--- NOTE | 2022-04-11 11:14 | P.PN ---
Subjective Progress Note Date: 04/11/22 Principal diagnosis: Left hip fracture Hospital Course: Patient is a 86-year-old female with no significant past medical history presenting for mechanical fall and left hip fracture. Patient being admitted to orthopedics service. S/p tronchanteric nailing. [facility] physicians has been consulted for medical management. Subjective: Patient seen and examined at bedside. No acute events overnight. She continues to have minimal pain in the left hip. She denies any chest pain, shortness of breath, abdominal pain, urinary or bowel complaints. Pertinent positives and negatives as discussed above, a complete review of systems was performed and all other systems are negative. Vitals Signs Reviewed. General: nontoxic, no distress, appears at stated age Derm: warm, dry, erythematous patches on bilateral buttocks, left thigh dressing clean and dry Head: atraumatic, normocephalic, symmetric Eyes: EOMI, no lid lag, anicteric sclera, pupils equal round reactive to light ENT: Nose and ears atraumatic Neck: No thyromegaly Mouth: no lip lesion, mucus membranes moist Cardiovascular: S1S2 reg, no murmur, no edema Lungs: clear to auscultation bilateral, no rhonchi, no rales, no wheeze, no accessory muscle use Abdominal: soft, nontender to palpation, no guarding, no appreciable organomegaly Ext: no gross muscle atrophy Neuro: CN II-XII grossly intact Psych: Alert, oriented, appropriate affect Assessment and Plan: Left femoral intertrochanteric fracture -now s/p surgery -Management per Orthopedic surgery -DVT prophylaxis and pain control Hypertension -Not on any chronic home medications -Likely in the setting of pain -Hydralazine as needed Medically optimized for discharge. Thank you for allowing us to participate in the care of this pleasant patient. Do not hesitate to contact us with questions. Someone can be reached from the [facility] hospitalist group all hours of the day at [phone] or via Songbird serve. Objective - Vital Signs Vital signs: Vital Signs Temp 98.7 F 04/11/22 07:56 Pulse 76 04/11/22 07:56 Resp 15 04/11/22 07:56 BP 135/66 04/11/22 07:56 Pulse Ox 97 04/11/22 07:56 FiO2 Intake & Output 04/10/22 04/11/22 04/11/22 18:59 06:59 18:59 Intake Total 620 Output Total 700 300 Balance 620 -700 -300 Weight 40.823 kg Intake: Oral 620 Output: Urine 700 300 Other: Voiding Method Indwelling Catheter Indwelling Catheter - Labs CBC & Chem 7: 04/11/22 06:30 04/07/22 11:49 Labs: Abnormal Lab Results - Last 24 Hours (Table) 04/11/22 Range/Units 06:30 RBC 2.66 L (4.10-5.20) X 10*6/uL Hgb 8.9 L (12.0-15.0) g/dL Hct 27.3 L (37.2-46.3) % MCV 102.6 H (80.0-97.0) fL MCH 33.5 H (27.0-32.0) pg Immature Gran # 0.07 H (0.00-0.04) X 10*3/uL
== END 2022-04-11 15:50 | DRG 481 ==
LOC: EC 11:19 → 4SSUR 12:23 → 5NMEDONC 16:27
PROVIDERS: ADMIT Orthopaedic Surgery; ATTEND Orthopaedic Surgery
PROC: 0QS734Z Reposition Left Upper Femur with Internal Fixation Device, Percutaneous Approach (ICD-10-PCS; principal; 2022-04-09 07:30)
DX: S72.142A Displaced intertrochanteric fracture of left femur, initial encounter for closed fracture (principal); D62 Acute posthemorrhagic anemia; E44.1 Mild protein-calorie malnutrition; Z68.1 Body mass index [BMI] 19.9 or less, adult; R64 Cachexia; W07.XXXA Fall from chair, initial encounter; E86.0 Dehydration; I10 Essential (primary) hypertension; L89.322 Pressure ulcer of left buttock, stage 2; Y92.019 Unspecified place in single-family (private) house as the place of occurrence of the external cause; L89.312 Pressure ulcer of right buttock, stage 2; Z79.82 Long term (current) use of aspirin; Z85.828 Personal history of other malignant neoplasm of skin; Z28.310 Unvaccinated for COVID-19; Z28.21 Immunization not carried out because of patient refusal; Z60.2 Problems related to living alone; Z71.3 Dietary counseling and surveillance; Z82.49 Family history of ischemic heart disease and other diseases of the circulatory system
CPT/HCPCS: 36415; 73502; 80048; 85025; 85610; 85730; 96374; 96375; 99285